=== PATIENT | male | born 1970 | race African-American/Black ===

== ENCOUNTER 2023-07-15 18:39 | Emergency (ER) | payer BC, SELFPAY ==
[2023-07-15 18:43] VITALS: BP 81/53; BMI 38.3
[2023-07-15 18:46] VITALS: BP 81/53
[2023-07-15 18:49] LABS: Glucose - Point of Care 274 mg/dl (70-99)
[2023-07-15] MEDS: NSS 1000 IV (18:55)
[2023-07-15 19:01] VITALS: BP 101/69
[2023-07-15 19:09] LABS: % Basophils 0.2 % (0-2); % Immature Granulocytes 0.6 % (0-0.5); % Lymphocytes 12.6 % (20.5-51.1); % Monocytes 3.9 % (1.7-9.3); % Neutrophils 82.7 % (42.2-75.2); Absolute Immature Granulocytes 0.1 10^3/uL (0-0.05); Absolute Lymphocytes 2.2 10^3/uL (1.2-3.4); Absolute Monocytes 0.7 10^3/uL (0.1-0.6); Absolute Neutrophils 14.2 10^3/uL (1.4-6.5); Hemoglobin 13.7 g/dL (13.0-18.0); Mean Corp Hgb Conc. 35.1 g/dL (33.0-37.0); Mean Corpuscular Hgb 29.3 pg (27.0-31.0); Mean Corpuscular Volume 83.5 fL (80.0-94.0); Mean Platelet Volume 8.5 fL (7.4-10.4); Nucleated Red Blood Cells % 0 % (-); Platelet Count 413 10^3/uL (130-400); Red Blood Cell Count 4.67 10^6/uL (4.70-6.10); White Blood Cell Count 17.2 10^3/uL (4.8-10.8)
--- NOTE | 2023-07-15 19:11 | ED.GENMED ---
History of Present Illness
General
Chief Complaint: Blood Sugar Problem
Source: patient
Time Seen by Provider: 07/15/23 19:00
Travel History
Have you had any contact with someone who has COVID-19?: No
Do you have any symptoms of coronavirus? Fever > 100 degrees, chills, cough, shortness of breath, sore throat, loss of taste or smell, muscle aches, or headache?: No
History of Present Illness
History of Present Illness:
52-year-old male presents to the emergency room after suffering a syncopal event at home. Patient began feeling unwell today. He has been feeling weak like energy. He also developed some dizziness. He got up to go to the bathroom this afternoon
and felt quite off balance. When he got to the bathroom he felt like he was going to pass out. He laid down on the ground and his symptoms evidently improved however when he got back up and walked back to his chair he did pass out. Patient
thought his symptoms may be related to hypoglycemia so he drank some orange juice. This may help somewhat but then he began feeling a recurrence of his symptoms. He evidently had some vomiting. Patient denies any chest pain or shortness of
breath. Denies any headache. Does continue to feel somewhat nauseous and not himself. Patient had loose stools for the past 24 hours.
Phy Exam
Physical Exam
Physical Exam:
General: Awake, Alert, Oriented X3. No acute distress.
Vitals: unremarkable
Head: Atraumatic
Eyes: Pupils equal, EOMI, small, conjunctiva
Throat: Airway intact, no exudates
Neck: Trachea midline
Lungs: Clear and equal b/l
Heart: Regular rate, no murmurs
Abd: Soft, Nontender, No pulsatile mass
Rectal:
Neuro: Nonfocal
Skin: Warm, dry, no rash
Extremities: pulses equal b/l, no edema
Course
Orders/Labs/Results
Orders:
Orders
07/15/23 18:51
EKG [Electrocardiogram (*1)] Urgent
Reason for Study: Syncope
EKG- Treatment ONCE
07/15/23 18:54
Complete Blood Count/With Diff Urgent
Comprehensive Metabolic Panel Urgent
0.9% Sodium Chloride 1000 ml [Nss] 1,000 ml IV BOLUS
07/15/23 19:26
COVID-19 Antigen Urgent
Source: Nasal Swab
Influenza A+B Rapid Molecular Urgent
ARI Source: Nasal Swab
Specimen Description:
07/15/23 20:44
Urinalysis Reflex To Culture Urgent
Date Specimen was Collected: 07/15/23
Time Specimen was Collected: 19:18
07/15/23 21:43
CT Abd/pelvis W Iv Cont Urgent
Comment:
Reason For Exam: llq abd pain
Ketorolac [Toradol] 15 mg IV NOW STA
Abnormal Lab Results
07/15/23 07/15/23 07/15/23
18:48 18:54 20:44
WBC 17.2 H 10^3/uL
(4.8-10.8)
RBC 4.67 L 10^6/uL
(4.70-6.10)
Plt Count 413 H 10^3/uL
(130-400)
Abs Immat Gran (auto) 0.1 H 10^3/uL
(0-0.05)
Absolute Neuts (auto) 14.2 H 10^3/uL
(1.4-6.5)
Absolute Monos (auto) 0.7 H 10^3/uL
(0.1-0.6)
Immature Gran % 0.6 H %
(0-0.5)
Neutrophils % 82.7 H %
(42.2-75.2)
Lymphocytes % 12.6 L %
(20.5-51.1)
Sodium 132 L mmol/L
(135-145)
Carbon Dioxide 19 L mmol/L
(22-30)
Glucose 283 H mg/dl
(70-99)
Total Protein 5.9 L g/dl
(6.3-8.2)
Albumin 3.4 L g/dl
(3.5-5.0)
Urine Ketones Trace A
(Negative)
Urine Glucose 3+ A
(Negative)
POC Glucose 274 H mg/dl
(70-99)
07/15/23 18:54
07/15/23 18:54
Vital Signs
Initial and Last Documented VS:
Initial Vital Signs
Pulse Resp
99 19
07/15/23 18:42 07/15/23 18:42
Last Documented Vital Signs
Temp Pulse Resp BP Pulse Ox
98.1 F 93 17 115/71 99
07/15/23 20:41 07/15/23 22:08 07/15/23 22:08 07/15/23 22:08 07/15/23 22:08
MDM/Problems Addressed
Differential Diagnosis Includes:
Vasovagal syncope, dehydration, electrolyte gastritis, diverticulitis
MDM/Problems Addressed:
Unclear if the patient was truly hypoglycemic. His glucose has been normal on each measurement. He did drink orange juice prior to paramedics arriving. However he was mildly hypotensive on arrival and has been having some diarrhea. Suspect this
was more of a vasovagal event. Patient given IV fluid. Labs show a mildly elevated white blood cell count 11,000. Chemistries show elevated glucose of 283. He does have bicarb of 19. Urinalysis shows significant glucose in his urine. Patient
is aware of diabetes and does take both Glucophage and Trulicity. CT obtained which does not show any evidence for diverticulitis but rather some changes consistent with enteritis. Patient stable for discharge home, clear liquid diet and slowly
advancing to a more normal diet.
*Radiology
Radiology exam reviewed: radiology read reviewed (Vision report reviewed)
*Pulse Oximetry
Patient hypoxic: no
*EKG
Heart Rate: 103
Rate: tachycardiac
Rhythm: sinus tachycardia
[place]: normal axis
Interval: normal interval
QRS Pattern: normal QRS
Ischemia: no ischemia
*Cement Loader Interpretation
Rate: tachycardiac
Interpretation: abnormal
Heart Rate: 103
Rhythm: sinus tachycardia
*Critical Care Note
Total Time (30-74mins, 75-104mins- exclusive of procedures): Not Applicable
ED Attending Note
-
Portions of this chart may have been created with voice recognition software.� Occasional wrong word or��sound alike� substitutions may have occurred due to the inherent limitations of voice recognition software.
Discharge Plan
Departure
Patient Disposition: Home (Routine Discharge)
Date of Disposition: 07/15/23
Time of Disposition: 22:41
Patient with high blood pressure during this ER visit?: No
Condition: Good
Discharge Problem:
Vasovagal syncope, Enteritis
Instructions: Viral gastroenteritis in adults, Syncope (Fainting) (DC)
Prescriptions:
New
ondansetron 4 mg tablet,disintegrating
4 mg PO TID PRN (Reason: nausea and vomiting) Qty: 12 0RF
Referrals:
Kellee Mcclure MD [Family Provider] -
Interventions
Interventions:
*Risk Screen - Suicide Last Done: 07/15/23 18:43
*General Assessment Last Done: 07/15/23 18:43
*Neglect/Abuse Screening Last Done: 07/15/23 18:43
ED- Fall Risk Assessment Last Done: 07/15/23 19:54
*ED COVID-19 Vaccine History Last Done: 07/15/23 18:43
ED- Neurological Assessment Last Done: 07/15/23 19:54
[2023-07-15 19:27] LABS: ALT (SGPT) 19 U/L (0-50); AST (SGOT) 22 U/L (17-59); Albumin 3.4 g/dl (3.5-5.0); Alkaline Phosphatase 95 U/L (38-126); Blood Urea Nitrogen 16 mg/dl (9-20); Calcium 8.5 mg/dl (8.4-10.2); Carbon Dioxide 19 mmol/L (22-30); Chloride 104 mmol/L (98-107); Estimated Creatinine Clearance 97 ml/min; Glucose 283 mg/dl (70-99); Sodium 132 mmol/L (135-145); Total Bilirubin 0.4 mg/dl (0.2-1.3); Total Protein 5.9 g/dl (6.3-8.2); eGFR > 60.00
[2023-07-15 19:46] LABS: COVID-19 Antigen Negative (Negative)
[2023-07-15 20:00] VITALS: BP 102/76
--- NOTE | 2023-07-15 20:37 | EDRN ---
Patient was able to ambulate into the restroom and back in bed without dizziness
[2023-07-15 21:00] VITALS: BP 108/69
[2023-07-15 21:00] LABS: Urine Albumin Trace (Neg - Trace); Urine Bilirubin Negative (Negative); Urine Character Clear (Clear); Urine Color Yellow; Urine Glucose 3+ (Negative); Urine Ketone Trace (Negative); Urine Leukocyte Negative (Negative); Urine Nitrite Negative (Negative); Urine Occult Blood Negative (Negative); Urine Urobilinogen Negative (Neg - 1+)
--- NOTE | 2023-07-15 21:30 | EDRN ---
Patient had reported abdominal pain, informed Dr. Antoine
[2023-07-15] MEDS: TORADOL 15 MG IV (22:06)
[2023-07-15 22:08] VITALS: BP 115/71
--- NOTE | 2023-07-15 22:15 | EDRN ---
Patient back from CT, updated on labs and medicated for pain
== END 2023-07-15 23:06 | disposition home or self-care (01) ==
LOC: EMR 18:39
PROVIDERS: EMERGENCY PHYSICIAN Emergency Medicine; FAMILY PHYSICIAN Family Medicine
DX: R55 Syncope and collapse (principal); K52.9 Noninfective gastroenteritis and colitis, unspecified; Z11.52 Encounter for screening for COVID-19; E11.65 Type 2 diabetes mellitus with hyperglycemia
CPT/HCPCS: 99285; 96361; 96374; 74177; 80053; 81003; 82962; 85025; 87502; 87811; 93005; Q9967